=== PATIENT | male | born 1970 | race Caucasian/White ===

== ENCOUNTER → 2019-12-24 10:45 | Outpatient (CLI) | payer OTHER, SELFPAY ==
--- NOTE | 2019-12-24 11:00 | EKG12_ITS ---
Test Reason : PRE OP Blood Pressure : / mmHG Vent. Rate : 072 BPM Atrial Rate : 072 BPM P-R Int : 150 ms QRS Dur : 086 ms QT Int : 396 ms P-R-T Axes : 046 043 041 degrees QTc Int : 433 ms Normal sinus rhythm Normal ECG When compared with ECG of 19-FEB-2011 19:27, Vent. rate has decreased BY 35 BPM Confirmed by CLIFTON MOFFETT ([id number]), editor sound TRIP HANNA ([id number]) on 12/25/2019 7:40:24 AM Referred By: Sascha Suggs Confirmed By:CLIFTON MOFFETT
[2019-12-24 12:12] LABS: Hematocrit 47.6 % (40-54); Hemoglobin 16.2 g/dL (13.0-16.5); Mean Corpuscular Hgb 29.9 pg (27.0-32.0); Mean Platelet Vol. 10.7 fl (6.2-12.0); Platelet Count 246 K/mm3 (150-450); RBC Distribution Width CV 12.6 % (11.6-14.6); RBC Distribution Width SD 40.2 fl (35.1-43.9); Red Blood Count 5.41 M/mm3 (4.6-6.2); White Blood Count 8.6 K/mm3 (4.4-11.0)
[2019-12-24 12:20] LABS: Anion Gap 4 (5-15); BUN 15 mg/dL (7-18); BUN/Creat Ratio 14.7 RATIO (10-20); Chloride 106 mmol/L (98-107); Creatinine, Serum 1.02 mg/dL (0.70-1.30); EST Glomerular Filtration Rate 82 mL/min (>60); Est Glom Filt Rate - Afr Amer 99 mL/min (>60); Glucose 94 mg/dL (74-106); Potassium 3.8 mmol/L (3.5-5.1); Sodium Level 139 mmol/L (136-145)
== END ==
PROVIDERS: PCP Family Medicine; Referring Provider Physician Assistant; Visit Provider Physician Assistant
DX: Z01.810 Encounter for preprocedural cardiovascular examination (principal); Z01.818 Encounter for other preprocedural examination
CPT/HCPCS: 36415; 80048; 85027; 93005

== ENCOUNTER 2020-12-30 14:30 | Outpatient (RCR) | payer OTHER, SELFPAY ==
[2020-12-30] MEDS: COVID-19 VACC, MRNA(PFIZER)/PF 30 MCG/0.3 ML SYRINGE IM (09:48)
[2021-01-20] MEDS: COVID-19 VACC, MRNA(PFIZER)/PF 30 MCG/0.3 ML SYRINGE IM (09:30)
== END 2020-12-30 23:59 ==
LOC: IMMUN 14:30
PROVIDERS: PCP Family Medicine; Visit Provider Family Medicine
DX: Z23 Encounter for immunization (principal)
CPT/HCPCS: 0001A; 0002A; 91300

== ENCOUNTER 2021-08-05 14:17 | Emergency (ER) | payer OTHER, SELFPAY ==
[2021-08-05 14:19] VITALS: BP 170/96; PULSE 84; RESP 16; TEMP 36.9; O2SAT 94; BMI 38.2
[2021-08-05 14:22] VITALS: BP 170/96; PULSE 86; RESP 20; O2SAT 94
--- NOTE | 2021-08-05 14:35 | EKG12_ITS ---
Test Reason : Blood Pressure : / mmHG Vent. Rate : 079 BPM Atrial Rate : 079 BPM P-R Int : 168 ms QRS Dur : 090 ms QT Int : 414 ms P-R-T Axes : 042 049 017 degrees QTc Int : 474 ms Normal sinus rhythm Normal ECG Confirmed by NYASIA REGAN, LEANNE ([id number]), television news video editor ANISHA YOUNG ([id number]) on 08/09/2021 10:41:37 AM Referred By: CURRY Confirmed By:LEANNE MURRELL MD
--- NOTE | 2021-08-05 14:35 | CT_ITS ---
EXAM: CT ABDOMEN AND PELVIS WITHOUT INTRAVENOUS CONTRAST CLINICAL INDICATION: Right flank pain TECHNIQUE: Helically acquired images were obtained of the abdomen and pelvis without intravenous contrast. This CT exam was performed using one or more of the following dose reduction techniques: automated exposure control, adjustment of the mA and/or kV according to patient size, and/or use of iterative reconstruction technique. This report was created using [employer] report generation technology. COMPARISON: None. FINDINGS: LOWER THORAX: Small hiatal hernia. Lung bases are clear. No cardiomegaly. No significant pericardial effusion. ABDOMEN: LIVER: Unremarkable. Homogeneous. GALLBLADDER AND BILE DUCTS: Unremarkable. No calcified gallstones. No gallbladder distention or wall edema. No intra- or extrahepatic biliary ductal dilation. PANCREAS: Unremarkable. No focal cystic mass. SPLEEN: Unremarkable. Normal size without focal cystic or solid mass. ADRENALS: Unremarkable. No nodules. KIDNEYS AND URETERS: 3 mm calculus in the right UVJ with slight right hydronephrosis and perinephric stranding. Normal renal size and position. STOMACH AND BOWEL: Unremarkable. No stomach or bowel distention. No focal inflammatory change. PELVIS: APPENDIX: No evidence of acute appendicitis. BLADDER: Unremarkable. REPRODUCTIVE: Unremarkable as visualized. No mass. ABDOMEN and PELVIS: INTRAPERITONEAL SPACE: Unremarkable. No ascites or other fluid collection. No free air. BONES/JOINTS: Unremarkable. No suspicious lytic or blastic abnormality. SOFT TISSUES: Unremarkable. No discrete abdominal or pelvic wall hernia. VASCULATURE: Unremarkable. Abdominal aorta is non-dilated. LYMPH NODES: Unremarkable. No enlarged lymph nodes. CT/Abdomen/Pelvis without Cont IMPRESSION: 3 mm calculus in the right UVJ with slight right hydronephrosis and perinephric stranding. Electronically Signed: Ford Shaw MD ([place]) at 14:58 EDT , Service support ,
--- NOTE | 2021-08-05 14:36 | EDS_ITS ---
HPI History of Present Illness Chief Complaint: Flank Pain Informant: patient and spouse/S.O. Narrative Narrative: Patient presents with right-sided abdominal pain. He stated it started about 5 AM this morning. He had already been up for half an hour with no symptoms. He does state that it was sudden onset like somebody kicked him. At first he stated the pain started in the right anterior abdomen but his states initially he was complaining that it was in the back. Currently it is in the right side to right mid quadrant. Nothing specifically makes it worse or better. It does wax and wane but never goes away. He has had mild nausea only when the pain is severe but no vomiting. He has never had anything like this before. He has no intra-abdominal surgery. He does have a history of mild GERD. He does take Nexium. This has not been worsening recently. He states he seems to be urinating a little bit less today especially since then he has been trying to drink fluids. No blood in the urine. No change in bowel habits. He has never had kidney stones. No history of biliary disease. No history of perforated ulcer. [facility] Medical History GERD (gastroesophageal reflux disease) HTN (hypertension) Home Medications esomeprazole magnesium [Nexium] 40 mg PO DAILY 08/05/21 [History Last Taken Unknown] lisinopril 10 mg PO DAILY 08/05/21 [History Last Taken Unknown] naproxen 500 mg PO BID #14 tab 08/05/21 [Rx Last Taken Unknown] ondansetron 4 mg PO Q8H PRN #10 tab 08/05/21 [Rx Last Taken Unknown] oxycodone-acetaminophen [Percocet] 1 tab PO Q6H PRN 3 Days #10 tab 08/05/21 [Rx Last Taken Unknown] tamsulosin [Flomax] 0.4 mg PO DAILY #10 cap 08/05/21 [Rx Last Taken Unknown] Allergy/AdvReac Type Severity Reaction Status Date / Time prednisone AdvReac HALLUCINATI Verified 08/05/21 14:18 ONS Surgical History History of hemiarthroplasty of left shoulder Social History Smoking Status: Never smoker ROS ROS ED Constitutional Constitutional ED: Denies chills or fever(s) ENT ENT ED: Denies rhinorrhea or sore throat Cardiovascular Cardiovascular: Denies chest pain or palpitations Respiratory/Chest Respiratory/Chest: Denies cough or dyspnea Gastrointestinal Gastrointestinal: Reports abdominal pain and nausea; Denies constipation, diarrhea, melena or vomiting Genitourinary Genitourinary ED: Reports other Details: See history of present illness. ; Denies dysuria or hematuria Musculoskeletal Musculoskeletal: Denies myalgias Integumentary Denies rash Neurologic Neurologic: Denies paresthesias or weakness Endocrine Endocrinology: Denies polydipsia or polyuria Allergic/Immunologic Allergic/Immunologic ED: Denies urticaria EXAM Physical Exam Const Vital Signs: 08/05/21 14:19 08/05/21 14:22 08/05/21 17:10 Temperature 98.5 F Temperature Source Temporal Pulse Rate 84 86 Respiratory Rate 16 20 H 16 Blood Pressure 170/96 H 170/96 H Blood Pressure Mean 120 120 Pulse Ox 94 94 Oxygen Delivery Method Room Air Room Air Room Air Patient does look uncomfortable. Positive well nourished, well developed and obese General Appearance ED: well developed Nutritional Appearance: obese HEENT Reports moist mucous membranes Eyes General Eye ED: Negative for pale conjunctiva or scleral icterus Neck no JVD Resp normal respiratory effort and clear to auscultation bilaterally Effort and Inspection: Negative for pain with movement Auscultation: Negative for rales or rhonchi Cardio regular rate and regular rhythm GI normal to inspection, nondistended, normoactive bowel sounds, non-tender and non-distended GI Narrative: Despite his discomfort, there is no tenderness. Even pressing firmly in the right upper quadrant does not seem to cause tenderness. None of the right lower or mid quadrant. He also does not have CVA tenderness. Palpation: soft Back/Spine no CVA tenderness Extremity normal to inspection General Extremety ED: Negative for edema or tenderness General Extremity: Negative for edema Neuro oriented x3 Sensorium / Orientation: alert Psych mental status grossly normal Skin no rashes or lesions noted Skin Narrative: No vesicles seen. MDM MDM MDM Narrative Medical decision making narrative: Blood work shows minimal bump of his white count at 12.2 that could be just demargination. Electrolytes showed mild creatinine elevation 1.44. He is given IV fluids. His CT does show a 3 mm distal right UVJ stone. We are awaiting urinalysis. As long as this does not show significant signs of infection we will get him home. If there is suggestion of infection we can get antibiotics started. Urinalysis shows clear urine. No significant signs of infection. Is having pain starting to come back to slightly. While he is here we will give him some more pain meds. We discussed reasons to return. 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 Lab Data Attestation: I reviewed the patient's lab results. Labs: Laboratory Results - last 24 hr 08/05/21 08/05/21 08/05/21 14:28 14:28 17:05 WBC 12.2 H RBC 5.37 Hgb 16.1 Hct 46.0 MCV 85.7 MCH 30.0 MCHC 35.0 RDW Std Deviation 38.8 RDW Coeff of Jamil 12.4 Plt Count 251 MPV 10.7 Immature Gran % (Auto) 0.400 Neut % (Auto) 76.2 H Lymph % (Auto) 16.1 L [place] % (Auto) 6.7 Eos % (Auto) 0.2 Baso % (Auto) 0.4 Absolute Neuts (auto) 9.3 H Absolute Lymphs (auto) 1.96 Nucleated RBC % 0 Sodium 138 Potassium 4.2 Chloride 106 Carbon Dioxide 26.0 Anion Gap 6 BUN 21 H Creatinine 1.44 H Estim Creat Clear Calc 61.26 Est GFR (MDRD) Af Amer 66 Est GFR (MDRD) Non-Af 55 L BUN/Creatinine Ratio 14.6 Glucose 101 Calcium 9.7 Total Bilirubin 0.90 AST 32 ALT 57 Alkaline Phosphatase 130 H Total Protein 7.6 Albumin 4.0 Globulin 3.6 Albumin/Globulin Ratio 1.1 Lipase 102 Urine Color Yellow Urine Clarity Clear Urine pH 7.0 Ur Specific [place] 1.010 Urine Protein 30 H Urine Glucose (UA) Normal Urine Ketones 50 H Urine Occult Blood 50 H Urine Nitrite Negative Urine Bilirubin Negative Urine Urobilinogen Normal Ur Leukocyte Esterase Negative Radiography Diagnostic Testing: Clinical Impression(s) from Imaging Studies Abdomen/Pelvis CT 08/05/21 14:35 IMPRESSION: 3 mm calculus in the right UVJ with slight right hydronephrosis and perinephric stranding. Electronically Signed: Ford Shaw MD (Bro[place]) at 14:58 EDT , Service support , Discharge Plan Triage Chief Complaint: Flank Pain ED Provider: Kael Lawton Dx/Rx/DC Orders Clinical Impression: Kidney stone Instructions: ED Kidney Stone w/ Colic Prescriptions: New oxycodone-acetaminophen [Percocet] 5-325 mg tablet 1 tab PO Q6H PRN (Reason: pain) 3 Days Qty: 10 RF: 0 ondansetron 4 mg tablet,disintegrating 4 mg PO Q8H PRN (Reason: nausea and vomiting) Qty: 10 RF: 0 naproxen 500 MG tablet 500 mg PO BID Qty: 14 RF: 0 tamsulosin [Flomax] 0.4 mg capsule 0.4 mg PO DAILY Qty: 10 RF: 0 No Action esomeprazole magnesium [Nexium] 40 mg Capsule,Delayed Release(Dr/Ec) 40 mg PO DAILY RF: 0 lisinopril 10 mg tablet 10 mg PO DAILY RF: 0 Primary Care Provider: Jonel Bullock Referrals: Jonel Bullock MD [Primary Care Provider] - 3-5 Days Disposition Disposition: Home, Self Care
[2021-08-05 14:48] LABS: Absolute Lymphocyte Count 1.96 X10^3/uL (0.83-4.51); Absolute Neutrophil Count 9.3 X10^3/uL (2.0-7.7); Basophil# 0.05 X10^3/uL; Basophil% 0.4 % (0-1); Eosinophil# 0.02 X10^3/uL; Eosinophils% 0.2 % (0-5); Hemoglobin 16.1 g/dL (13.0-16.5); Lymphocyte # 1.96 X10^3/ul (0.83-4.51); Lymphocyte % 16.1 % (19-41); Mean Corpuscular Volume 85.7 fL (80-94); Mean Platelet Vol. 10.7 fl (6.2-12.0); Monocyte# 0.82 X10^3/uL; Monocyte% 6.7 % (0-10); NRBC Flagged by Analyzer 0 % (0-5); Neutrophil # 9.25 X10^3/uL (2.7-7.7); Neutrophil % 76.2 % (47-70); Platelet Count 251 K/mm3 (150-450); RBC Distribution Width CV 12.4 % (11.6-14.6); RBC Distribution Width SD 38.8 fl (35.1-43.9); Red Blood Count 5.37 M/mm3 (4.6-6.2); White Blood Count 12.2 K/mm3 (4.4-11.0)
[2021-08-05] MEDS: 0.9% Normal Saline 1,000 ML 1000 ML IV (14:48)
[2021-08-05] MEDS: Ondansetron 4 MG/2 ML Vial IV (14:49)
[2021-08-05] MEDS: Morphine 4 MG/ML Syringe IV ×2 (14:50→18:02)
[2021-08-05] MEDS: Ketorolac 15 MG/ML Vial IV (14:50)
[2021-08-05 15:00] LABS: ALB/GLOB Ratio 1.1 RATIO (0.9-2.4); AST(SGOT) 32 U/L (15-37); Alanine Aminotransfer ALT/SGPT 57 U/L (16-61); Alkaline Phosphatase 130 U/L (45-117); Anion Gap 6 (5-15); BUN 21 mg/dL (7-18); BUN/Creat Ratio 14.6 RATIO (10-20); Calcium,Total 9.7 mg/dL (8.5-10.1); Chloride 106 mmol/L (98-107); Creatinine, Serum 1.44 mg/dL (0.70-1.30); EST Glomerular Filtration Rate 55 mL/min (>60); Est Glom Filt Rate - Afr Amer 66 mL/min (>60); Estimated Creatinine Clearance 61.26 ml/min; Globulin 3.6 g/dL (2.2-4.2); Glucose 101 mg/dL (74-106); Lipase 102 U/L (73-393); Potassium 4.2 mmol/L (3.5-5.1); Protein, Total 7.6 g/dL (6.4-8.2); Sodium Level 138 mmol/L (136-145)
[2021-08-05 17:10] VITALS: RESP 16
[2021-08-05 17:13] LABS: Bacteria 0 SEEN /hpf (None Seen); Squamous Epithelial Cells - UA 0 SEEN /hpf (0-5); White Blood Cells 0 SEEN /hpf (0-5)
[2021-08-05 17:29] LABS: Color, Urine Yellow (Yellow); Glucose, Dipstick Normal (Normal); Ketone-Dipstick 50 mg/dl (Negative); Leukocyte Esterase-Dipstick Negative /ul (Negative); Nitrite-Dipstick Negative (Negative); Occult Blood-Urine 50 /ul (Negative); Protein-Dipstick 30 mg/dl (Negative); Urine Bilirubin Dipstick Negative (Negative); Urine Clarity Clear (Clear); Urine Urobilinogen Normal (Normal)
[2021-08-05 18:09] VITALS: BP 155/86; PULSE 76; RESP 16; O2SAT 97
[2021-08-05 18:16] LABS: Mucous, Urine 1+ /hpf (<or=2+); Red Blood Cells-Urine 0-5 SEEN /hpf (0-5)
== END 2021-08-05 18:13 | disposition home or self-care (01) ==
PROVIDERS: Emergency Provider Emergency Medicine; PCP Family Medicine
DX: N13.2 Hydronephrosis with renal and ureteral calculous obstruction (principal); I10 Essential (primary) hypertension; E66.9 Obesity, unspecified; Z68.38 Body mass index [BMI] 38.0-38.9, adult; K21.9 Gastro-esophageal reflux disease without esophagitis; Z79.899 Other long term (current) drug therapy
CPT/HCPCS: 74176; 80053; 81001; 83690; 85025; 93005; 96361; 96374; 96375; 96376; 99284; J7030; A4216; J2405

== ENCOUNTER → 2021-08-19 16:31 | Outpatient (CLI) | payer OTHER, SELFPAY ==
--- NOTE | 2021-08-19 16:35 | US_ITS ---
STUDY: RENAL ULTRASOUND - COMPLETE REASON FOR EXAM: Male, 51 years old. CONFIRM RESOLUTION OF HYDRONEPHROSIS TECHNIQUE: Ultrasound evaluation of the kidneys was performed with real-time and static bledsoe-scale imaging. COMPARISON: None. FINDINGS: RIGHT KIDNEY: Normal location of the right kidney, which is normal in size. The right kidney measures 10.3 x 8.4 x 6.1 cm. There is a normal cortex of the right kidney. The renal cortex measures 11.9 cm. There is no right renal mass or cyst. There are no right renal calculi. There is no right hydronephrosis. DISTAL RIGHT URETER: There is non-visualization of the distal right ureter. There is no demonstrated right ureterovesical junction calculus. There is a visualized right ureteral jet. LEFT KIDNEY: Normal location of the left kidney, which is normal in size. The left kidney measures 11.4 x 5.4 x 6 cm. There is a normal cortex of the left kidney. The renal cortex measures 1.8 cm. There is no left renal mass or cyst. There are no left renal calculi. There is no left hydronephrosis. DISTAL LEFT URETER: There is non-visualization of the distal left ureter. There is no demonstrated left ureterovesical junction calculus. There is a visualized left ureteral jet. . BLADDER: The distended urinary bladder has a volume of 149.29 ml. The empty urinary bladder has a volume of 0.56 ml. There is a normal wall thickness of the distended urinary bladder. There is no demonstrated mass within the urinary bladder. There are no demonstrated bladder calculi. US/Kidney and Bladder IMPRESSION: Normal ultrasound of the kidneys and urinary bladder. Electronically Signed: Franklyn Bean MD at 17:35 EDT , Service support ,
--- NOTE | 2021-08-19 16:48 | RAD_ITS ---
STUDY: X-RAY - ABDOMEN/PELVIS REASON FOR EXAM: Male, 51 years old. CONFIRM RESOLUTION OF HYDRONEPHROSIS TECHNIQUE: KUB COMPARISON: None. FINDINGS: Normal visualized lung bases. There is an unremarkable bowel gas pattern. There is no demonstrated free abdominal air. The visualized liver, spleen and kidneys are grossly normal in size and morphology. Normal soft tissue structures. Normal visualized osseous structures. RAD/Abdomen Single View IMPRESSION: Normal x-ray examination of the abdomen and pelvis. Electronically Signed: Franklyn Bean MD at 17:17 EDT , Service support ,
== END ==
PROVIDERS: PCP Family Medicine; Referring Provider Family Medicine; Visit Provider Family Medicine
DX: N13.2 Hydronephrosis with renal and ureteral calculous obstruction (principal)
CPT/HCPCS: 74018; 76770

== ENCOUNTER 2022-09-12 09:31 | Emergency (ER) | payer OTHER, SELFPAY ==
[2022-09-12 09:32] VITALS: BP 135/89; PULSE 58; RESP 18; TEMP 36.6; O2SAT 96; BMI 34.0
[2022-09-12 09:34] VITALS: BP 135/89; PULSE 58; RESP 18; TEMP 36.6; O2SAT 96
--- NOTE | 2022-09-12 10:31 | EDS_ITS ---
HPI History of Present Illness Chief Complaint: Flank Pain Narrative Narrative: 52-year-old male past medical history of hypertension presents with left flank pain that he has had maybe since yesterday. He has past medical history of previous ureteral stone which he passed on his own/pain resolved on its own last year. He states at that time he thought he had more of a stomach problem and abdominal pain. He began having the same feeling yesterday, but this morning after he woke up he began having left flank pain that feels more like a pressure sensation and it is dull and achy, constant, but waxes and wanes. He denies any fevers or chills. No nausea or vomiting. No dysuria or hematuria. No exacerbating or alleviating factors, but as he was driving to his annual work physical he had increasing pain on the left flank. [facility] Medical History Chronic neck and back pain GERD (gastroesophageal reflux disease) HTN (hypertension) Knee pain Home Medications esomeprazole magnesium 40 mg capsule,delayed release (Nexium) 40 mg PO DAILY 08/05/21 [History Last Taken Unknown] lisinopril 10 mg tablet 10 mg PO DAILY 08/05/21 [History Last Taken Unknown] naproxen 500 mg tablet 500 mg PO BID #14 tabs 08/05/21 [Rx Last Taken Unknown] ondansetron 4 mg disintegrating tablet 4 mg PO Q8H PRN nausea and vomiting #10 tabs 08/05/21 [Rx Last Taken Unknown] oxycodone-acetaminophen 5 mg-325 mg tablet (Percocet) 1 tab PO Q6H PRN pain 3 days #10 tabs 08/05/21 [Rx Last Taken Unknown] tamsulosin 0.4 mg capsule (Flomax) 0.4 mg PO DAILY #10 caps 08/05/21 [Rx Last Taken Unknown] Allergy/AdvReac Type Severity Reaction Status Date / Time prednisone AdvReac HALLUCINATI Verified 09/12/22 09:34 ONS Family History Other CVA (cerebral vascular accident) Heart disease Surgical History History of hemiarthroplasty of left shoulder Social History Smoking Status: Never smoker ROS ROS ED ROS Narrative Constitutional: No fever, no chills. HEENT: No sore throat. No neck pain. No loss of vision. No rhinorrhea. Cardiovascular: No chest pain. No palpitations. No pedal edema. Respiratory: No cough, no shortness of breath. Abdominal: No abdominal pain. No nausea. No vomiting. Genitourinary: No dysuria. No hematuria. Positive left flank pain/pressure Musculoskeletal: No myalgias. No arthralgias. Neurologic: No headaches. No dizziness. No lightheadedness. Skin: No rash. No change in color. Psychiatric: No depression. No anxiety. EXAM Physical Exam Narrative Exam Narrative: Afebrile. Vital signs noted. HEENT: Normocephalic. Atraumatic. PERRL, EOMI. Neck soft and supple. No point tenderness or step off. Cardiovascular: Regular rate and rhythm. No murmurs, rubs, or gallops appreciated. Respiratory: No tachypnea. Lungs clear to auscultation bilaterally. Gastrointestinal: Abdomen soft, nontender, with normoactive bowel sounds. No rebound or guarding. Neurological: Awake. Alert. Nonfocal, nonlateralizing. Skin: No rash. Normal color. No pallor. Musculoskeletal: No pedal edema. Full range of motion extremities. No CVA tenderness to percussion, left. Const Vital Signs: 09/12/22 09:32 09/12/22 09:34 09/12/22 10:34 Temperature 98 F 98 F 98 F Temperature Source Temporal Temporal Temporal Pulse Rate 58 L 58 L 58 L Respiratory Rate 18 18 18 Blood Pressure 135/89 H 135/89 H 135/89 H Blood Pressure Mean 104 104 104 Pulse Ox 96 96 96 Oxygen Delivery Method Room Air Room Air Room Air MDM MDM MDM Narrative Medical decision making narrative: Patient is already taken ibuprofen this morning. He was given a dose of morphine and IV fluids run at 250 mL/h. Comprehensive work-up was pursued including CBC, BMP, urinalysis, and CT of the flank without contrast. CBC is g rossly normal with a normal white count of 6.8, hemoglobin slightly elevated at 16.7 with normal platelet count of 217. Electrolyte panel is grossly unremarkable with a normal BUN of 14 and creatinine of 1.12. Urinalysis is negative for infection, negative ketones. CT of the abdomen and pelvis without contrast shows no evidence of acute process, no ureterolithiasis or hydronephrosis. At this point in time, while I am uncertain as to the cause of his flank pain, I do feel he can be discharged safely home with follow-up given his negative work-up today. He will take [id number] medications as needed. Return instructions were reviewed. Disposition is discharged home in stable condition. Lab Data Attestation: I reviewed the patient's lab results. Labs: Laboratory Results - last 24 hr 09/12/22 09/12/22 09/12/22 10:15 10:15 10:15 WBC 6.8 RBC 5.53 Hgb 16.7 H Hct 49.4 MCV 89.3 MCH 30.2 MCHC 33.8 RDW Std Deviation 40.7 RDW Coeff of Jamil 12.3 Plt Count 217 MPV 10.7 Immature Gran % (Auto) 0.400 Neut % (Auto) 60.2 Lymph % (Auto) 29.7 [place] % (Auto) 7.1 Eos % (Auto) 1.9 Baso % (Auto) 0.7 Absolute Neuts (auto) 4.1 Absolute Lymphs (auto) 2.02 Nucleated RBC % 0 Sodium 141 Potassium 4.3 Chloride 107 Carbon Dioxide 29.0 Anion Gap 5 BUN 14 Creatinine 1.12 Estim Creat Clear Calc 75.40 Est GFR (MDRD) Af Amer 88 Est GFR (MDRD) Non-Af 73 BUN/Creatinine Ratio 12.5 Glucose 97 Calcium 9.6 Urine Color Yellow Urine Clarity Clear Urine pH 6.0 Ur Specific [place] 1.015 Urine Protein Negative Urine Glucose (UA) Normal Urine Ketones Negative Urine Occult Blood Negative Urine Nitrite Negative Urine Bilirubin Negative Urine Urobilinogen Normal Ur Leukocyte Esterase Negative Urine RBC 0 SEEN Urine WBC 0 SEEN Ur Squamous Epith Cells 0 SEEN Urine Bacteria 0 SEEN Urine Mucus 0 SEEN Radiography Diagnostic Testing: Clinical Impression(s) from Imaging Studies Abdomen/Pelvis CT 09/12/22 11:46 IMPRESSION: Mild degree of bibasilar atelectasis. No evidence of ureteral obstruction. Electronically Signed: Fuad Manuel MD at 12:33 EST , Discharge Plan Triage Chief Complaint: Flank Pain ED Provider: Jared Lopez Dx/Rx/DC Orders Clinical Impression: Flank pain, Back pain Instructions: ED Flank Pain, Uncertain Cause, ED Pain, Acute, Uncertain Cause Prescriptions: No Action esomeprazole magnesium [Nexium] 40 mg Capsule,Delayed Release(Dr/Ec) 40 mg PO DAILY lisinopril 10 mg tablet 10 mg PO DAILY oxycodone-acetaminophen [Percocet] 5-325 mg tablet 1 tab PO Q6H PRN (Reason: pain) 3 Days Qty: 10 0RF ondansetron 4 mg tablet,disintegrating 4 mg PO Q8H PRN (Reason: nausea and vomiting) Qty: 10 0RF naproxen 500 MG tablet 500 mg PO BID Qty: 14 0RF tamsulosin [Flomax] 0.4 mg capsule 0.4 mg PO DAILY Qty: 10 0RF Primary Care Provider: Jonel Bullock Referrals: Jonel Bullock MD [Primary Care Provider] - 3-5 Days if not improving Disposition Disposition: Home, Self Care
[2022-09-12 10:34] VITALS: BP 135/89; PULSE 58; RESP 18; TEMP 36.6; O2SAT 96
[2022-09-12] MEDS: Morphine 4 MG/ML Syringe IV (10:44)
[2022-09-12] MEDS: 0.9% Normal Saline 1,000 ML 250 ML IV (10:44)
[2022-09-12 10:55] LABS: Bacteria 0 SEEN /hpf (None Seen); Mucous, Urine 0 SEEN /hpf (<or=2+); Red Blood Cells-Urine 0 SEEN /hpf (0-5); Squamous Epithelial Cells - UA 0 SEEN /hpf (0-5); White Blood Cells 0 SEEN /hpf (0-5)
[2022-09-12 10:57] LABS: Absolute Lymphocyte Count 2.02 X10^3/uL (0.83-4.51); Absolute Neutrophil Count 4.1 X10^3/uL (2.0-7.7); Basophil# 0.05 X10^3/uL; Basophil% 0.7 % (0-1); Color, Urine Yellow (Yellow); Eosinophil# 0.13 X10^3/uL; Eosinophils% 1.9 % (0-5); Glucose, Dipstick Normal (Normal); Hematocrit 49.4 % (40-54); Hemoglobin 16.7 g/dL (13.0-16.5); Ketone-Dipstick Negative (Negative); Leukocyte Esterase-Dipstick Negative /ul (Negative); Lymphocyte # 2.02 X10^3/ul (0.83-4.51); Lymphocyte % 29.7 % (19-41); Mean Corp Hgb Conc 33.8 g/dL (32-36); Mean Corpuscular Hgb 30.2 pg (27.0-32.0); Mean Corpuscular Volume 89.3 fL (80-94); Mean Platelet Vol. 10.7 fl (6.2-12.0); Monocyte# 0.48 X10^3/uL; Monocyte% 7.1 % (0-10); NRBC Flagged by Analyzer 0 % (0-5); Neutrophil # 4.09 X10^3/uL (2.7-7.7); Neutrophil % 60.2 % (47-70); Nitrite-Dipstick Negative (Negative); Occult Blood-Urine Negative /ul (Negative); Platelet Count 217 K/mm3 (150-450); Protein-Dipstick Negative (Negative); RBC Distribution Width CV 12.3 % (11.6-14.6); RBC Distribution Width SD 40.7 fl (35.1-43.9); Red Blood Count 5.53 M/mm3 (4.6-6.2); Specific Gravity, Urine 1.015 (1.002-1.030); Urine Bilirubin Dipstick Negative (Negative); Urine Clarity Clear (Clear); Urine Urobilinogen Normal (Normal); White Blood Count 6.8 K/mm3 (4.4-11.0)
[2022-09-12 11:09] LABS: Anion Gap 5 (5-15); BUN 14 mg/dL (7-18); BUN/Creat Ratio 12.5 RATIO (10-20); Calcium,Total 9.6 mg/dL (8.5-10.1); Chloride 107 mmol/L (98-107); Creatinine, Serum 1.12 mg/dL (0.70-1.30); EST Glomerular Filtration Rate 73 mL/min (>60); Est Glom Filt Rate - Afr Amer 88 mL/min (>60); Glucose 97 mg/dL (74-106); Potassium 4.3 mmol/L (3.5-5.1); Sodium Level 141 mmol/L (136-145)
--- NOTE | 2022-09-12 11:46 | CT_ITS ---
STUDY: CT ABDOMEN AND PELVIS WITHOUT CONTRAST REASON FOR EXAM: Male, 52 years old. Flank pain-LEFT RADIATION DOSAGE (If Supplied By Facility): CTDIvol = ( 17.62 ) mGy, DLP = ( 854.05 ) mGycm TECHNIQUE: Transaxial images were obtained from the dome of the diaphragm to the symphysis pubis without oral contrast, and without intravenous contrast. Sagittal and coronal images were reconstructed. Individualized dose optimization techniques were used for this CT. COMPARISON: Comparison is made with prior study 08/05/2021. FINDINGS: Mild degree of increased markings at the lung bases suggestive of linear atelectasis. The visualized portions of the heart are within normal limits. Normal liver. Normal gallbladder and extrahepatic biliary system. Normal spleen. Normal pancreas. Normal bilateral adrenal glands. Normal right kidney. Normal left kidney. There is a small hiatal hernia. Normal small intestine. There are multiple colonic diverticula consistent with diverticulosis. The appendix is visualized and appears normal. Normal abdominal aorta. Normal inferior vena cava. Normal retroperitoneum. Normal urinary bladder. There is a small umbilical hernia containing fat. Small bilateral inguinal hernias containing fat slightly more prominent on the left side. Disc space narrowing at the L5-S1 level with a grade 1 anterolisthesis of L5 on S1 with spondylolysis of the pars interarticularis of the L5 vertebrae. CT/Abdomen/Pelvis without Cont IMPRESSION: Mild degree of bibasilar atelectasis. No evidence of ureteral obstruction. Electronically Signed: Fuad Manuel MD at 12:33 EST ,
[2022-09-12 13:40] VITALS: BP 131/60; PULSE 51; RESP 18; O2SAT 99
== END 2022-09-12 13:44 | disposition home or self-care (01) ==
PROVIDERS: Emergency Provider Emergency Medicine; PCP Family Medicine; Visit Provider Emergency Medicine
DX: R10.9 Unspecified abdominal pain (principal); M54.9 Dorsalgia, unspecified
CPT/HCPCS: 74176; 80048; 81001; 85025; 96374; 99285; J7030; A4216

== ENCOUNTER 2024-03-28 07:15 | Day surgery (SDC) | payer OTHER, SELFPAY ==
[2024-03-28] VITALS (10 sets, daily range): BP systolic 92–140; BP diastolic 63–82; PULSE 62–71; RESP 16; TEMP 36.2–36.6; O2SAT 91–97; BMI 38.1
[2024-03-28] MEDS: Lactated Ringers 1,000 ML 15 ML IV (07:39)
--- NOTE | 2024-03-28 07:50 | HP.PCM_ITS ---
HPI - General HPI Narrative IMANI OSCAR, is a 53 M who presents for screening colonoscopy. Patient has never had a screening colonoscopy in the past. He denies abdominal pain or blood in the stool. He does not have family history of colon cancer. [facility] Medical History (Updated 03/24/24 @ 10:16 by Gloria Farias) Wears contact lenses Wears glasses Alcohol use Injury of head and neck Back pain History of hiatal hernia Gastric reflux Non-smoker History of irregular heartbeat Chronic neck and back pain Knee pain GERD (gastroesophageal reflux disease) HTN (hypertension) Home Medications ?Medication ?Instructions ?Recorded ?Last Taken ?Type esomeprazole magnesium 40 mg 40 mg PO DAILY 08/05/21 03/28/24 History capsule,delayed release (Nexium) fluticasone propionate 50 1 spray intranasal BID PRN allergy 02/15/24 03/27/24 History mcg/actuation nasal symptoms spray,suspension (Flonase Allergy Relief) lisinopril 10 mg tablet 40 mg PO DAILY 02/15/24 03/28/24 History cetirizine 10 mg tablet (24Hour 10 mg PO DAILY PRN allergy symptoms 03/24/24 03/27/24 History Allergy) Allergy/AdvReac Type Severity Reaction Status Date / Time prednisone AdvReac HALLUCINATI Verified 03/28/24 07:31 ONS Family History (Updated 02/15/24 @ 10:47 by Ai Liang) Sister Diabetes Other CVA (cerebral vascular accident) Heart disease Surgical History (Updated 02/15/24 @ 10:46 by Ai Liang) History of esophagogastroduodenoscopy (EGD) History of hemiarthroplasty of left shoulder Social History (Updated 02/15/24 @ 10:48 by Ai Liang) household members: children current occupational status: employed 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 [employer] Smoking Status: Never smoker alcohol intake: current details: Occasional alcohol substance use type: does not use Past Medical/Surgical History Planned Operation Planned Operative Procedure(s): COLONOSCOPY-OA Previous Hospitalizations/Surgeries HX Hospitalizations: No Any Problems With Anesthesia: No You/Your Family Experience Fever (Hyperthermia) With Anes: No Cholinesterase deficiency: No Cardiovascular Hx Hypertension: Yes (CONTROLLED ON MED) Respiratory Hx Sleep Apnea: No Hx Respiratory Tract Infection/Cold (presently): No Do You Snore Loudly (louder than talking or can be heard): No Do You Often Feel Tired/ Fatigued/ Sleepy Dring Daytime?: No Has Anyone Observed You Stop Breathing During Sleep?: No Result (for STOP score): Negative Smoking Status: Never smoker Neurological Does patient have nerve stimulator: No Miscellaneous Recent Exposure to Contagious Disease: No Allergies prednisone Adverse Reaction (Verified 03/28/24 07:31) HALLUCINATIONS Discharge Is Pt Admitted From a Long Term, or a Long-Term: No After D/C, Where Do you Plan to Go: Return Home Vital Signs Vital Signs Vital Signs: 03/28/24 07:32 03/28/24 07:32 Temperature 97.8 F Temperature Source Temporal Pulse Rate 71 Respiratory Rate 16 Respiratory Pattern Normal Blood Pressure 140/82 H Blood Pressure Mean 101 Blood Pressure Source Monitor Blood Pressure Position Semi-Fowlers Blood Pressure Location Right Arm Pulse Ox 97 Oxygen Delivery Method Room Air Weight Weight: 265 lb 9.6 oz Body Mass Index (BMI) 38.1 Physical Exam Const alert and oriented x3 HEENT normocephalic Eyes PERRL Resp normal respiratory effort and normal air movement Cardio regular rate and regular rhythm GI soft to palpation, non-tender and non-distended Extremity normal to inspection Assessment & Plan Assessment/Plan (1) Encounter for screening for malignant neoplasm of colon: PLAN: I explained endoscopy in detail to the patient. I explained the risks including but not limited to stroke or heart attack with anesthesia, perforation of the GI tract, bleeding, infection. I explained that any of these could necessitate further emergency surgery. The patient understands and all question s were answered sufficiently. The patient wishes to proceed with procedure. Maxwell Hankins MD Pager: [facility] [address] [place] [address], [address] [place] [address] Office: Surgery Risks - Colonoscopy Risks Include but are not Limited To: Risks include but are not limited to: Bleeding, perforation requiring further surgery, inability to complete colonoscopy requiring barium enema.
--- NOTE | 2024-03-28 08:08 | PRE.ANES_ITS ---
ASA Classification* ASA Classification ASA Classification: 3 Assessment & Plan Anesthesia* Anesthesia Assessment Anesthesia Assessment: Discussed sedation and/or anesthesia options, risks, benefits, and alternatives with patient/parents/legal guardian/POA. Questions invited. The patient/parents/legal guardian/POA seems to understand and agrees to proceed with anesthesia plan. Reviewed the physical assessment, medical history, allergy history and patient home medications list prior to surgery/procedure/anesthetic and documented any changes. Performed airway and anesthesia risk assessments. 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 When Was Last Pacemaker Check QUESTION #4 FULL TEXT: You/Your Family Experience fever (hyperthermia) with Anesthesia Last Oral Intake Last Oral intake: Last Oral Intake NPO since Meds taken in AM with sips of water? Meds patient instructed to take am of surgery PONV PONV - supervisor microfilm duplicating unit: PONV - supervisor microfilm duplicating unit Female No 03/24/24 10:16 HX of Motion Sickness No 03/24/24 10:16 HX of N/V After Surgery No 03/24/24 10:16 Non-Smoker Yes 03/24/24 10:16 Duration of Surgery greater No 03/24/24 10:16 than 60 minutes Number of Risk Factors 1 03/24/24 10:16 PONV Score Low Risk 03/24/24 10:16 Height & Weight Height & Weight: Anesthesia: Height & Weight Height 5 ft 10 in 03/28/24 07:32 Weight: 120.474 kg 03/28/24 07:32 Body Mass Index (BMI) 38.1 03/28/24 07:32 Respiratory Assessment Respiratory Assessment - supervisor microfilm duplicating unit: Respiratory Tract Infection Hx - supervisor microfilm duplicating unit Hx Respiratory Tract Infection No 03/28/24 07:53 STOP Sleep Apnea STOP Sleep Apnea - supervisor microfilm duplicating unit: STOP Sleep Apnea - supervisor microfilm duplicating unit Hx Hypertension Yes: CONTROLLED ON MED 03/28/24 07:53 Hx Sleep Apnea No 03/28/24 07:53 CPAP BIPAP Do you snore loudly (louder No 03/28/24 07:53 than talking or can be heard Do you often feel tired/ No 03/28/24 07:53 fatigued/ sleepy during daytime? Has anyone observed you stop No 03/28/24 07:53 breathing during sleep? STOP Results Negative 03/28/24 07:53 QUESTION #5 FULL TEXT : Do you snore loudly (louder than talking or can be heard through closed doors)? Tobacco Use History Tobacco Use History - supervisor microfilm duplicating unit: Tobacco Use History - supervisor microfilm duplicating unit Tobacco Use Smoking Status Never smoker 03/28/24 07:53 Hx Tobacco Use No 03/24/24 10:16 Years Smoking Packs Smoked per Day Smoking Cessation Date was within the last 15 years Hx Smoking Cessation Date Hx Smoking Cessation Counseling Hematologic Medial History Hematologic Hx - supervisor microfilm duplicating unit: Hematologic Medical Hx - executive asst Hx of Blood Transfusion No 03/24/24 10:16 Hx of Transfusion in last 3 No 03/24/24 10:16 Months Date of Last Transfusion (if within last 3 months) Ever experience any problems No 03/24/24 10:16 with transfusion(s)? Specify any problems Hx of Preganancy in last 3 N/A 03/24/24 10:16 Months Nurse Filling Out Transfusion VCHRISTIN 03/24/24 10:16 & Questions: Date: 03/24/24 03/24/24 10:16 Time: 10:18 03/24/24 10:16 Patient unable to answer at this time (ie. confused, unrespo /Reproduction History /Reproductive History - supervisor microfilm duplicating unit: /Reproductive Hx- supervisor microfilm duplicating unit Hx Now Gestational Age (in weeks): EDC: Hx Hx Para Hx Section SAB Active Medications Active Medications: Current Medications Generic Name Dose Route Start Last Admin Trade Name Freq PRN Reason Stop Dose Admin Lactated Ringer's 1,000 mls @ 15 mls/hr 03/28/24 07:30 03/28/24 07:39 IV 15 mls/hr .Q48H PEGGY Administration Anesthesia Focused Assessment* Temperature: 97.8 F Pulse Rate: 71 Blood Pressure: 140/82 Respiratory Rate: 16 Pulse Ox: 97 Airway Assessment Mouth opens: >3 cm Mallampati Score: III Focused Labs Anesthesia Preop lab: CBC WBC 6.8 K/mm3 (4.4-11.0) 09/12/22 10:15 RBC 5.53 M/mm3 (4.6-6.2) 09/12/22 10:15 Hgb 16.7 g/dL (13.0-16.5) H 09/12/22 10:15 Hct 49.4 % (40-54) 09/12/22 10:15 Plt Count 217 K/mm3 (150-450) 09/12/22 10:15 CHEMISTRY Potassium 4.3 mmol/L (3.5-5.1) 09/12/22 10:15 Sodium 141 mmol/L (136-145) 09/12/22 10:15 BUN 14 mg/dL (7-18) 09/12/22 10:15 Creatinine 1.12 mg/dL (0.70-1.30) 09/12/22 10:15 Glucose 97 mg/dL (74-106) 09/12/22 10:15 COAG Review of Systems (Anesthesia) ROS Narrative System reviewed and no additional complaints, except as documented. [facility] Medical History Wears contact lenses Wears glasses Alcohol use Injury of head and neck Back pain History of hiatal hernia Gastric reflux Non-smoker History of irregular heartbeat Chronic neck and back pain Knee pain GERD (gastroesophageal reflux disease) HTN (hypertension) Home Medications ?Medication ?Instructions ?Recorded ?Last Taken ?Type esomeprazole magnesium 40 mg 40 mg PO DAILY 08/05/21 03/28/24 History capsule,delayed release (Nexium) fluticasone propionate 50 1 spray intranasal BID PRN allergy 02/15/24 03/27/24 History mcg/actuation nasal symptoms spray,suspension (Flonase Allergy Relief) lisinopril 10 mg tablet 40 mg PO DAILY 02/15/24 03/28/24 History cetirizine 10 mg tablet (24Hour 10 mg PO DAILY PRN allergy symptoms 03/24/24 03/27/24 History Allergy) Allergy/AdvReac Type Severity Reaction Status Date / Time prednisone AdvReac HALLUCINATI Verified 03/28/24 07:31 ONS Family History Sister Diabetes Other CVA (cerebral vascular accident) Heart disease Surgical History History of esophagogastroduodenoscopy (EGD) History of hemiarthroplasty of left shoulder Social History household members: children current occupational status: employed 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
--- NOTE | 2024-03-28 08:09 | PRE.ANES_ITS ---
ASA Classification* ASA Classification ASA Classification: 2 Assessment & Plan Anesthesia* Anesthesia Assessment Anesthesia Assessment: Discussed sedation and/or anesthesia options, risks, benefits, and alternatives with patient/parents/legal guardian/POA. Questions invited. The patient/parents/legal guardian/POA seems to understand and agrees to proceed with anesthesia plan. Reviewed the physical assessment, medical history, allergy history and patient home medications list prior to surgery/procedure/anesthetic and documented any changes. Performed airway and anesthesia risk assessments. 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 When Was Last Pacemaker Check QUESTION #4 FULL TEXT: You/Your Family Experience fever (hyperthermia) with Anesthesia Last Oral Intake Last Oral intake: Last Oral Intake NPO since Meds taken in AM with sips of water? Meds patient instructed to take am of surgery PONV PONV - ocean rescue lieutenant: PONV - ocean rescue lieutenant Female No 03/24/24 10:16 HX of Motion Sickness No 03/24/24 10:16 HX of N/V After Surgery No 03/24/24 10:16 Non-Smoker Yes 03/24/24 10:16 Duration of Surgery greater No 03/24/24 10:16 than 60 minutes Number of Risk Factors 1 03/24/24 10:16 PONV Score Low Risk 03/24/24 10:16 Height & Weight Height & Weight: Anesthesia: Height & Weight Height 5 ft 10 in 03/28/24 07:32 Weight: 120.474 kg 03/28/24 07:32 Body Mass Index (BMI) 38.1 03/28/24 07:32 Respiratory Assessment Respiratory Assessment - ocean rescue lieutenant: Respiratory Tract Infection Hx - ocean rescue lieutenant Hx Respiratory Tract Infection No 03/28/24 07:53 STOP Sleep Apnea STOP Sleep Apnea - ocean rescue lieutenant: STOP Sleep Apnea - ocean rescue lieutenant Hx Hypertension Yes: CONTROLLED ON MED 03/28/24 07:53 Hx Sleep Apnea No 03/28/24 07:53 CPAP BIPAP Do you snore loudly (louder No 03/28/24 07:53 than talking or can be heard Do you often feel tired/ No 03/28/24 07:53 fatigued/ sleepy during daytime? Has anyone observed you stop No 03/28/24 07:53 breathing during sleep? STOP Results Negative 03/28/24 07:53 QUESTION #5 FULL TEXT : Do you snore loudly (louder than talking or can be heard through closed doors)? Tobacco Use History Tobacco Use History - ocean rescue lieutenant: Tobacco Use History - ocean rescue lieutenant Tobacco Use Smoking Status Never smoker 03/28/24 07:53 Hx Tobacco Use No 03/24/24 10:16 Years Smoking Packs Smoked per Day Smoking Cessation Date was within the last 15 years Hx Smoking Cessation Date Hx Smoking Cessation Counseling Hematologic Medial History Hematologic Hx - ocean rescue lieutenant: Hematologic Medical Hx - paraeducator Hx of Blood Transfusion No 03/24/24 10:16 Hx of Transfusion in last 3 No 03/24/24 10:16 Months Date of Last Transfusion (if within last 3 months) Ever experience any problems No 03/24/24 10:16 with transfusion(s)? Specify any problems Hx of Preganancy in last 3 N/A 03/24/24 10:16 Months Nurse Filling Out Transfusion VCHRISTIN 03/24/24 10:16 & Questions: Date: 03/24/24 03/24/24 10:16 Time: 10:18 03/24/24 10:16 Patient unable to answer at this time (ie. confused, unrespo /Reproduction History /Reproductive History - ocean rescue lieutenant: /Reproductive Hx- ocean rescue lieutenant Hx Now Gestational Age (in weeks): EDC: Hx Hx Para Hx Section SAB Active Medications Active Medications: Current Medications Generic Name Dose Route Start Last Admin Trade Name Freq PRN Reason Stop Dose Admin Lactated Ringer's 1,000 mls @ 15 mls/hr 03/28/24 07:30 03/28/24 07:39 IV 15 mls/hr .Q48H PEGGY Administration Anesthesia Focused Assessment* Temperature: 97.8 F Pulse Rate: 71 Blood Pressure: 140/82 Respiratory Rate: 16 Pulse Ox: 97 Airway Assessment Mouth opens: >3 cm Mallampati Score: II Focused Labs Anesthesia Preop lab: CBC WBC 6.8 K/mm3 (4.4-11.0) 09/12/22 10:15 RBC 5.53 M/mm3 (4.6-6.2) 09/12/22 10:15 Hgb 16.7 g/dL (13.0-16.5) H 09/12/22 10:15 Hct 49.4 % (40-54) 09/12/22 10:15 Plt Count 217 K/mm3 (150-450) 09/12/22 10:15 CHEMISTRY Potassium 4.3 mmol/L (3.5-5.1) 09/12/22 10:15 Sodium 141 mmol/L (136-145) 09/12/22 10:15 BUN 14 mg/dL (7-18) 09/12/22 10:15 Creatinine 1.12 mg/dL (0.70-1.30) 09/12/22 10:15 Glucose 97 mg/dL (74-106) 09/12/22 10:15 COAG Review of Systems (Anesthesia) ROS Narrative System reviewed and no additional complaints, except as documented. [facility] Medical History Wears contact lenses Wears glasses Alcohol use Injury of head and neck Back pain History of hiatal hernia Gastric reflux Non-smoker History of irregular heartbeat Chronic neck and back pain Knee pain GERD (gastroesophageal reflux disease) HTN (hypertension) Home Medications ?Medication ?Instructions ?Recorded ?Last Taken ?Type esomeprazole magnesium 40 mg 40 mg PO DAILY 08/05/21 03/28/24 History capsule,delayed release (Nexium) fluticasone propionate 50 1 spray intranasal BID PRN allergy 02/15/24 03/27/24 History mcg/actuation nasal symptoms spray,suspension (Flonase Allergy Relief) lisinopril 10 mg tablet 40 mg PO DAILY 02/15/24 03/28/24 History cetirizine 10 mg tablet (24Hour 10 mg PO DAILY PRN allergy symptoms 03/24/24 03/27/24 History Allergy) Allergy/AdvReac Type Severity Reaction Status Date / Time prednisone AdvReac HALLUCINATI Verified 03/28/24 07:31 ONS Family History Sister Diabetes Other CVA (cerebral vascular accident) Heart disease Surgical History History of esophagogastroduodenoscopy (EGD) History of hemiarthroplasty of left shoulder Social History household members: children current occupational status: employed 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
--- NOTE | 2024-03-28 08:30 | COLBX_PTH ---
PATIENT: IMANI OSCAR LOC: EN U#:[id number] AGE/SX: 53/M ROOM: RE03/28/[address]: Dr. Maxwell Hankins MD : 1970 BED: DIS: 03/28/2024 SPEC #: [id number] RECD: 03/28/24 10:51 STATUS: MISSAEL MOSHERJesse #: [id number] AMY: 03/28/24 08:[address]: Maxwell Hankins DEPT: SURGICAL PATHOLOGY RECD BY: Sara Byers ENTERED: 03/28/24 12:28 SP TYPE: COLON BX OTHR DR: Mercy Pate, PERMANENT MOLD SUPERVISOR-C Tissues: A - Cecum, NOS B - Transverse colon Procedures: Surgery Specimen Level IV HEADER OPERATION: Colonoscopy, polypectomy PRE-OP DIAGNOSIS: Encounter for screening for malignant neoplasm of colon TISSUE SUBMITTED: A- Cecal polyp, B- Transverse colon polyp MICROSCOPIC DIAGNOSIS A. Cecal polyp, biopsy: Scant fecal debris. See comment. B. Transverse colon polyp, biopsy: Benign colonic mucosa with benign lymphoid tissue. /mr 03/31/2024 COMMENT A. Glandular mucosa is not present in the biopsy. Clinical correlation is suggested. MICROSCOPIC DESCRIPTION Slides are reviewed. GROSS DESCRIPTION A. Received in fixative is one container labeled with the patient's name and designated Cecal polyp. The specimen consists of scant fragments of brownish fecal material. No obvious mucosal tissue is identified. B. Received in fixative is one container labeled with the patient's name and designated Transverse colon polyp. The specimen consists of multiple fragments of perez soft tissue measuring in aggregate 0.6 x 0.2 x 0.1cm. /mr 03/28/2024 TC:5 CPT:36689b6
--- NOTE | 2024-03-28 08:33 | OP.COLON_ITS ---
Patient Name: James Ramos Procedure Date: 03/28/2024 7:51 AM Date of : 1970 Age: 53 Procedure: Colonoscopy Indications: Screening for colorectal malignant neoplasm Providers: Maxwell Hankins MD Referring MD: Radhames Novak Medicines: Propofol per Anesthesia Patient Profile: This is a 53 year old male. Refer to note in patient chart for documentation of history and physical. Last Colonoscopy: none. The patient's first colonoscopy is today. Complications: No immediate complications. Estimated blood loss: Minimal. Procedure: Pre-Anesthesia Assessment: - Prior to the procedure, a History and Physical was performed, and patient medications and allergies were reviewed. The patient's tolerance of previous anesthesia was also reviewed. The risks and benefits of the procedure and the sedation options and risks were discussed with the patient. All questions were answered, and informed consent was obtained. Prior Anticoagulants: The patient has taken no anticoagulant or antiplatelet agents. After reviewing the risks and benefits, the patient was deemed in satisfactory condition to undergo the procedure. After I obtained informed consent, the scope was passed under direct vision. Throughout the procedure, the patient's blood pressure, pulse, and oxygen saturations were monitored continuously. The Colonoscope was introduced through the anus and advanced to the cecum, identified by appendiceal orifice and ileocecal valve. The colonoscopy was performed without difficulty. The patient tolerated the procedure well. The quality of the bowel preparation was good. The ileocecal valve, appendiceal orifice, and rectum were photographed. Scope In: 8:16:52 AM Scope Withdrawal Time 0 hours 3 minutes 38 seconds Scope Out: 8:26:08 AM Total Procedure Duration Time 0 hours 9 minutes 16 seconds Findings: Two polyps were found in the transverse colon and cecum. The polyps were small in size. These polyps were removed with a hot snare. Resection and retrieval were complete. Impression: - Two small polyps in the transverse colon and in the cecum, removed with a hot snare. Resected and retrieved. Recommendation: - Discharge patient to home. - Resume previous diet. - Continue present medications. - Await pathology results. - Repeat colonoscopy in 5 years for surveillance based on pathology results. Procedure Code(s): --- Professional --- 74676, Colonoscopy, flexible; with removal of tumor(s), polyp(s), or other lesion(s) by snare technique Diagnosis Code(s): --- Professional --- Z12.11, Encounter for screening for malignant neoplasm of colon D12.3, Benign neoplasm of transverse colon (hepatic flexure or splenic flexure) D12.0, Benign neoplasm of cecum CPT copyright 2021 [employer]. All rights reserved. The codes documented in this report are preliminary and upon machine adjuster leader review may be revised to meet current compliance requirements. Maxwell Hankins MD 03/28/2024 8:32:58 AM This report has been signed electronically. Number of Addenda: 0 Note Initiated On: 03/28/2024 7:51 AM
--- NOTE | 2024-03-28 08:33 | OP.CCLET_ITS ---
03/28/2024 Radhames Novak Re : Colonoscopy procedure for James Ramos [place] This procedure was performed on Thursday, March 28, 2024. My impressions and recommendations are as follows: Impressions : - Two small polyps in the transverse colon and in the cecum, removed with a hot snare. Resected and retrieved. Recommendations : - Discharge patient to home. - Resume previous diet. - Continue present medications. - Await pathology results. - Repeat colonoscopy in 5 years for surveillance based on pathology results. My findings are described in the full procedure note, which is enclosed. If I can be of further assistance, please feel free to contact me at Doctor phone number(s): , Work: . Sincerely, Maxwell Hankins MD 03/28/2024 8:32:58 AM This report has been signed electronically.
--- NOTE | 2024-03-28 08:33 | PCM.POST.ANE ---
Anesthesia: Postop Eval I Current Vital Signs Temperature: 97.2 F Pulse Rate: 66 Blood Pressure: 103/80 Respiratory Rate: 16 Pulse Ox: 91 Oxygen Delivery Method: Room Air Assessment Airway patent: Yes Spontaneous unlabored respirations: Yes Mental status: Asleep nausea: No Vomiting: No Anesthesia Complication: No Fluid Hydration Crystalloid volume administer (ml): 500 Total IV fluid infused: 500 Progress Note Anesthesia document: Postop Eval 1 completed: Yes
--- NOTE | 2024-03-28 09:31 | PCM.POSTANE2 ---
Anesthesia Postop Eval I Sum Postop Eval Completion status Anesthesia document: Postop Eval 1 completed: Yes Anesthesia Postop Eval I Summary Anesthesia Postop Eval I Summary: Anesthesia Postop Eval I: Assessment Summary Airway patent Yes 03/28/24 08:42 [email or web address] Spontaneous unlabored Yes 03/28/24 08:42 [email or web address] respirations Mental status Asleep 03/28/24 08:42 [email or web address] nausea No 03/28/24 08:42 [email or web address] Vomiting No 03/28/24 08:42 [email or web address] Anesthesia Postop Eval I: Fluid Summary Crystalloid volume administer 500 03/28/24 08:42 [email or web address] (ml) Colloids volume administered ( ml) Blood Product volume administered (ml) Total IV fluid infused 500 03/28/24 08:42 [email or web address] Anesthesia Postop Eval I: Summary Notes Anesthesia Complication No 03/28/24 08:42 [email or web address] Anesthesia Complication Comment: Post-operative progress note Anesthesia: Postop Eval II Evaluation Mental status: Awake Pain Level: 0 nausea: No Vomiting: No Complications Anesthesia Complication: No
== END 2024-03-28 09:13 | disposition home or self-care (01) ==
LOC: EN 07:20 → AC 07:27
PROVIDERS: PCP Nurse Practitioner Family; Referring Provider Nurse Practitioner Family; Visit Provider Surgery
PROC: 0DJD8ZZ Inspection of Lower Intestinal Tract, Via Natural or Artificial Opening Endoscopic (ICD-10-PCS; CPT 45378; principal; 2024-03-28 08:25)
DX: Z12.11 Encounter for screening for malignant neoplasm of colon (principal); K63.5 Polyp of colon; I10 Essential (primary) hypertension; K21.9 Gastro-esophageal reflux disease without esophagitis; Z79.899 Other long term (current) drug therapy; Z87.19 Personal history of other diseases of the digestive system
CPT/HCPCS: 45385; 88305; J7120; J2405